=== PATIENT | male | born 1955 | race Caucasian/White ===

== ENCOUNTER 2017-10-22 12:04 | Observation (INO) | payer OTHER ==
[~2017-10-22 12:04] MED LIST: ASPI-516 CHEW; CARV10 PO; LISI10TA3 PO; SIMV40TA PO
[2017-10-22] MEDS ORDERED: ONDANSETRON HCL 4 MG/2 ML VIAL IV PUSH PRN (20:15)
[2017-10-22] MEDS ORDERED: ACETAMINOPHEN 500 MG CPLT PO PRN (20:15)
[2017-10-22] MEDS ORDERED: NITROGLYCERIN 0.4 MG SL 25 TABS/BTL SL PRN (20:15)
[2017-10-22 20:53] VITALS: BP 127/78; PULSE 73; RESP 18; TEMP 98.3; O2SAT 99
[2017-10-22 23:25] VITALS: BP 123/78; PULSE 70; RESP 18; TEMP 98; O2SAT 98
[2017-10-23 03:10] VITALS: BP 138/87; PULSE 73; RESP 18; TEMP 98.1; O2SAT 96
[2017-10-23 07:03] VITALS: PULSE 64
[2017-10-23 08:30] VITALS: BP 127/83; PULSE 68; RESP 18; TEMP 98; O2SAT 97
[2017-10-23] MEDS ORDERED: ASPIRIN 325 MG TAB PO SCH (09:00)
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
--- NOTE | 2017-10-23 11:30 | HHI.DS ---
Discharge Summary Admission Date Oct 22, 2017 at 19:47 Admitting Diagnosis Pt Condition on Discharge: Good Discharge Disposition: Discharge Home Discharge Instructions DIET: Follow Instructions for: Heart Healthy Diet Activities you can perform: Regular-No Restrictions Additional Activity Instructio: smoking cessation Bryan Coulter MD Oct 23, 2017 11:30
--- NOTE | 2017-10-24 13:57 | TR ---
Date Performed: 10/23/2017 Time Performed: 10:49:27 DOCTOR: Bryan Coulter DRUG LIST: CLINICAL HISTORY: CHEST PAIN REASON FOR TEST: Chest pain REASON FOR ENDING: Negative 90% max stress test without EKG changes or symptoms. Recovery unrem arkable. OBSERVATION: CONCLUSION: Patient exercised using a standard Lm protocol reaching 90% of predicted maximum heart rate with no symptoms and no EKG changes to suggest ischemia. Recovery was uneventful. This r epresents a low probability of significant ischemic coronary artery disease as a cause of current pre sentation COMMENTS:
== END 2017-10-23 12:17 | disposition home or self-care (01) ==
LOC: NEDDLT 12:04 → NEPHCDU 19:47 → INTOOBSV 19:47
PROVIDERS: ADMIT Internal Medicine Cardiovascular Disease; ATTEND Internal Medicine Cardiovascular Disease
DX: R07.89 Other chest pain (principal); R53.1 Weakness; R06.02 Shortness of breath; I25.10 Atherosclerotic heart disease of native coronary artery without angina pectoris; E78.5 Hyperlipidemia, unspecified; F17.210 Nicotine dependence, cigarettes, uncomplicated; Z95.5 Presence of coronary angioplasty implant and graft; Z79.899 Other long term (current) drug therapy
CPT/HCPCS: 71046; 80048; 82550; 82552; 83735; 83880; 84484; 85025; 85379; 85610; 85730; 93005; 93017; 99285; G0378